=== PATIENT | female | born 1970 | race African-American/Black ===

== ENCOUNTER 2024-10-25 22:07 | Emergency (ER) | payer MEDICAID, OTHER ==
[~2024-10-25] VITALS: Ht 167.6 cm; Wt 68.6 kg
--- NOTE | 2024-10-25 22:36 | ED.PDOC ---
HPI Comments 54-year-old female with PMHx Asthma presents with a chief complaint of chest pain x 1 week. Patient states that her pain is localized to her right chest, radiates into her right arm and right shoulder, describes as aching, and reports that her elbow to her fingers feels numb. She reports pain in right shoulder and chest is worsened with movement of the right upper extremity. Patient mentions that she initially went to [place] urgent care and they told her to be seen at the nearest ER instead. Patient mentions that she already takes Oxycodone for pain management from [place]. Patient denies any injuries or trauma prior to onset of symptoms. He reports recent upper respiratory infection symptoms. Past medical history includes asthma and cholecystectomy. She denies history of hypertension, diabetes, hyperlipidemia, cardiac disease, smoking history. Chief Complaint: Chest Pain Time Seen by MD: 22:21 Reviewed Notes: Medications, Allergies Allergies: Coded Allergies: Penicillins (Verified Allergy, 11/27/12) Information Source: Patient Mode of Arrival: Ambulatory Severity: Moderate Timing: Days Duration: Since onset Prehospital treatment: None Location: Chest (R) Radiation: Shoulder (R), Arm (R) Quality: Aching Onset: At Rest Cardiac Risk Factors: None PE Risk Factors: None History of: None Vital Signs Vital Signs Date Time Temp Pulse Resp B/P (MAP) Pulse Ox O2 Delivery O2 Flow Rate FiO2 10/26/24 01:30 71 16 98 Room Air* 0 21 10/26/24 01:30 98.1 163/108 (126) 98.1 Physical Exam General: Awake, alert and oriented. No acute distress. Skin: Skin in warm, dry and intact. Appropriate color for ethnicity. HEENT: The head is normocephalic and atraumatic. Conjunctivae are clear without exudates or hemorrhage. Sclera is non-icteric. EOM are intact. No signs of nystagmus. Eyelids are normal in appearance without swelling or lesions. Oral mucosa is pink and moist Neck: The neck is supple. No JVD. Cardiac: Heart rate and rhythm are normal. No murmurs, gallops, or rubs are auscultated. Radial pulses strong and equal. Respiratory: No signs of respiratory distress. Lung sounds are clear in all lobes bilaterally without rales, rhonchi, or wheezes. Abdominal: Abdomen is soft, non-tender without distention. Bowel sounds are present and normoactive in all four quadrants. Extremities: Right shoulder, right trapezius, right chest wall tender to palpation. Neurological: The patient is awake, alert and oriented to person, place, and time with normal speech. Speech is clear. There is no facial asymmetry. Normal gait. Strength in upper and lower extremities intact. Psychiatric: Appropriate mood and affect. Good judgement and insight. Review of Systems: REVIEW OF SYSTEMS: No fever, no chills, or fatigue HEENT: Positive sore throat, positive tinnitus, no earache, no congestion, positive neck pain neck pain (chronic). Cardiac: Positive chest pain. No palpitations. Lungs: No shortness of breath, no cough. GI: No nausea, no vomiting, no diarrhea, no constipation, positive abdominal pain yesterday : No dysuria, frequency, or urgency. No hematuria. Musculoskeletal: Positive right shoulder pain, no joint swelling, no extremity edema. Skin: No rash, no itching. 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 Was a procedure done?: No CP Differential Dx Differential Diagnosis: Electrolyte Disorder, Other (Acute coronary syndrome, pulmonary embolism, pneumonia, upper respiratory infection, muscle spasm, cervical radiculopathy, limb ischemia, aortic dissection) Differential Diagnosis: CHF, HTN Essential Differential Diagnosis: Chest Wall Pain, Costochondritis, Other (Musculoskeletal pain) X-Ray, Labs, Meds, VS Vital Signs Date Time Temp Pulse Resp B/P (MAP) Pulse Ox O2 Delivery O2 Flow Rate FiO2 10/26/24 01:30 71 16 98 Room Air* 0 21 10/26/24 01:30 98.1 71 16 163/108 (126) 98 98.1 10/26/24 01:08 73 10/26/24 00:12 67 10/26/24 00:05 67 10/25/24 22:34 98.1 85 16 176/121 (139) 96 98.1 10/25/24 22:13 70 Lab Test 10/26/24 02:25 10/26/24 00:15 10/25/24 22:42 Range/Units Influenza Type A Antigen Pending Influenza Type B Antigen Pending SARS-CoV-2 Antigen (Rapid) Pending Troponin I High Sensitivity < 3 L < 3 L </=34 ng/L White Blood Count 5.4 4.4-10.8 10^3/uL Red Blood Count 4.93 4.0-5.20 10^6/uL Hemoglobin 14.2 12.2-16.2 g/dL Hematocrit 42.3 36.0-46.0 % Mean Corpuscular Volume 85.8 80.0-100.0 fL Mean Corpuscular Hemoglobin 28.8 28.0-32.0 pg Mean Corpuscular Hemoglobin Concent 33.6 32.0-36.0 g/dL Red Cell Distribution Width 13.7 11.8-14.3 % Platelet Count 267 140-450 10^3/uL Mean Platelet Volume 7.7 6.9-10.8 fL Neutrophils (%) (Auto) 37.3 37.0-80.0 % Lymphocytes (%) (Auto) 48.5 10.0-50.0 % Monocytes (%) (Auto) 7.0 0.0-12.0 % Eosinophils (%) (Auto) 6.3 0.0-7.0 % Basophils (%) (Auto) 0.9 0.0-2.0 % Neutrophils # (Auto) 2.0 1.6-8.6 10 ^3/uL Lymphocytes # (Auto) 2.6 0.4-5.4 10 ^3/uL Monocytes # (Auto) 0.4 0-1.3 10 ^3/uL Eosinophils # (Auto) 0.3 0-0.8 10 ^3/uL Basophils # (Auto) 0.1 0-0.2 10 ^3/uL Nucleated Red Blood Cells 0.1 % Sodium Level 143 136-145 mmol/L Potassium Level 3.9 3.5-5.1 mmol/L Chloride Level 104 98-107 mmol/L Carbon Dioxide Level 30 20-31 mmol/L Anion Gap 9 5-15 Blood Urea Nitrogen 8 L 9-23 mg/dL Creatinine 0.91 0.550-1.02 mg/dL Glomerular Filtration Rate Calc 75 >90 mL/min BUN/Creatinine Ratio 8.8 L 10.0-20.0 Serum Glucose 113 H 74-106 mg/dL Calcium Level 10.1 8.7-10.4 mg/dL Magnesium Level 2.1 1.6-2.6 mg/dL Total Bilirubin 0.3 0.2-1.0 mg/dL Aspartate Amino Transferase (AST) 40 13-40 U/L Alanine Aminotransferase (ALT) 55 H 7-40 U/L Alkaline Phosphatase 119 H 46-116 U/L Creatine Kinase 94 34-145 U/L Total Protein 7.1 5.7-8.2 g/dL Albumin 4.7 3.2-4.8 g/dL Current Medications Medications (Trade) Dose Ordered Sig/Huang Route Start Time Stop Time Status Last Admin Ketorolac Tromethamine (Toradol Injection) 60 mg ONCE ONCE IM 10/25/24 22:45 10/25/24 22:46 DC 10/26/24 01:40 Acetaminophen (Tylenol Tablet Or Capsule) 1,000 mg ONCE ONCE PO 10/25/24 22:45 10/25/24 22:46 DC 10/26/24 01:41 Diazepam (Valium Tablet) 5 mg ONCE ONCE PO 10/25/24 22:45 10/25/24 22:46 DC 10/26/24 01:41 PATIENT: ROISO CARTERACCT: [id number]: [id number] : 1970 LOC: ER ROOM / BED: / AGE / SEX: 54 / F ADM STATUS: REG ER SERVICE 30 ORDERING PHYSICIAN: RACIEL KAUR MD PROCEDURE(s): CXR2 - CHEST TWO VIEWS ROUTINE REASON: Right-sided chest pain ORDER NUMBER(s): [id number], ACCESSION NUMBER(s): [id number] CHEST RADIOGRAPH Indication: Right-sided chest pain Technique: Frontal and lateral view of the chest was obtained Comparison: None FINDINGS: Lines and Tubes: None Lungs: Clear Pleura: No effusion. No pneumothorax. Cardiomediastinal contours: Unremarkable Bones: Unremarkable IMPRESSION: No abnormality demonstrated. ATED BY: ALEX MAJOR MD DICTATED DATE/TIME: 10/25/247 SIGNED BY: ALEX MAJOR MD SIGNED DATE/TIME: 10/25/242256 Images Reviewed?: Images reviewed and evaluated by me (Independent interpretation of chest x-ray: No acute disease) Time of 1ST Reevaluation: 22:51 Reevaluation 1ST: Unchanged Patient Education/Counseling: Need For Follow Up Family Education/Counseling: No Family Present Departure 1 Departure Time of Disposition: 01:12 Impression: Primary Impression: Chest pain Additional Impression: Right shoulder pain Disposition: 01 HOME / SELF CARE / HOMELESS Condition: Stable Additional Instructions: ED DISCHARGE INSTRUCTIONS Instructions: Please read all instructions provided in this packet carefully. Although you have been discharged from the Emergency Department, this does not mean that you have a "clean bill of health". No definitive diagnosis for your symptoms has been made today. It is possible that you are in the process of developing a serious illness. This is why you must return to the ED without fail if any new or worsening symptoms (especially if your symptoms include chest pain, trouble breathing, abdominal pain, fever, headache, confusion, trouble seeing, or trouble walking) It is also very important that you see a primary care doctor within the next 3-5 days to follow up. If you are unable to get an appointment, return to the ED for re-evaluation. You had elevated blood pressure reading today. Untreated high blood pressure can have serious consequences. However, you need a follow-up appointment to recheck your blood pressure to determine whether or not you need treatment. Make an appointment with your primary care provider for this within the next week. CHEST PAIN EDUCATION There are many things that can cause chest pain. Some are not serious and will get better on their own in a few days. But some kinds of chest pain need more testing and treatment. Your doctor may have recommended a follow-up visit in the next few days. If you are not getting better, you may need more tests or treatment. Even though your doctor has released you, you still need to watch for any problems. The doctor carefully checked you, but sometimes problems can develop later. If you have new symptoms or if your symptoms do not get better, get medical care right away. If you have worse or different chest pain or pressure that lasts more than 5 minutes or you passed out (lost consciousness), call 911 or seek other emergency help right away. A medical visit is only one step in your treatment. Even if you feel better, you still need to do what your doctor recommends, such as going to all suggested follow-up appointments and taking medicines exactly as directed. This will help you recover and help prevent future problems. How can you care for yourself at home? Rest until you feel better. Take your medicine exactly as prescribed. Call your doctor if you think you are having a problem with your medicine. Do not drive after taking a prescription pain medicine. When should you call for help? Call 911 if: You passed out (lost consciousness). You have severe difficulty breathing. You have symptoms of a heart attack. These may include: Chest pain or pressure, or a strange feeling in your chest. Sweating. Shortness of breath. Nausea or vomiting. Pain, pressure, or a strange feeling in your back, neck, jaw, or upper belly or in one or both shoulders or arms. Lightheadedness or sudden weakness. A fast or irregular heartbeat. After you call 911, the peeler operator may tell you to chew 1 adult-strength or 2 to 4 low-dose aspirin. Wait for an ambulance. Do not try to drive yourself. Call your doctor now or seek immediate medical care if: You have any trouble breathing. You have new or different chest pain. You are dizzy or lightheaded, or you feel like you may faint. Watch closely for changes in your health, and be sure to contact your doctor if you do not get better as expected. Current as of: February 11, 2024 Author: [employer] Staff? Comments 54-year-old female with right-sided chest pain associated with right shoulder pain, worsened with right upper extremity movement. EKG negative for signs of ischemia. High sensitivity troponin negative. CXR shows no acute process. Presentation not suggestive of acute coronary syndrome, pulmonary embolism or aortic dissection. Suspect musculoskeletal pain. Patient improved at time of discharge. No hypoxia, respiratory distress or dyspnea at discharge. Blood pressure improved. Patient able to ambulate without difficulty. Patient well-appearing, nontoxic. Advised prompt follow-up with PCP, return to the ED with any new, worsening or concerning symptoms. Discussed with Dr. Ramos from [place]. He will arrange for outpatient follow up with patient's PCP. (#[id number]) @ 02:24 - I reviewed the following notes from the pt's past medical encounters: Encounter 11/27/2012 for chest pain The following tests were ordered, and results were reviewed by me: (See diagnostic results section) The following test were independently interpreted by me: EKG, chest x-ray Additional information was gathered from interviewing the following independent historians: N/A I reviewed and agreed with the following test results read by other providers: Chest x-ray I discussed treatments and results with medical personnel and patient Decision regarding hospitalization or escalation of hospital level of care: Risks and benefits of admission for further treatment of patient's condition was considered however due to patient's stable condition patient will be discharged to follow up closely or return to care for worsening of condition or inability to follow up. Critical Care Note Critical Care Time?: No Stability Stability form required: No Heart Score Heart Score: Heart Score Response (Comments) Value History Slightly Suspicious 0 EKG Normal 0 Age 45-64 1 Risk Factors No known risk factors 0 Troponin Normal limit 0 Total 1 I personally scribed for RACIEL KAUR MD (Book [employer]back) on 10/25/24 at 22:36. Electronically submitted by Maik Lopez ([email or web address]). I personally scribed for RACIEL KAUR MD (Book Buyback) on 10/25/24 at 23:19. Electronically submitted by Maik Lopez ([email or web address]). I personally scribed for RACIEL KAUR MD (Book Buyback) on 10/26/24 at 00:12. Electronically submitted by Maik Lopez ([email or web address]). RACIEL KAUR MD Oct 25, 2024 22:36
[2024-10-25 22:56] LABS: Basophils # (auto) 0.1 10 ^3/uL (0-0.2); Basophils % (auto) 0.9 % (0.0-2.0); Eosinophils # (auto) 0.3 10 ^3/uL (0-0.8); Eosinophils % (auto) 6.3 % (0.0-7.0); Hematocrit 42.3 % (36.0-46.0); Hemoglobin 14.2 g/dL (12.2-16.2); Lymphocytes # (auto) 2.6 10 ^3/uL (0.4-5.4); Lymphocytes % (auto) 48.5 % (10.0-50.0); Mean Corpuscular Hemoglobin 28.8 pg (28.0-32.0); Mean Corpuscular Hgb Conc. 33.6 g/dL (32.0-36.0); Mean Corpuscular Volume 85.8 fL (80.0-100.0); Monocytes # (auto) 0.4 10 ^3/uL (0-1.3); Neutrophils % (auto) 37.3 % (37.0-80.0); Nucleated Red Blood Cells % 0.1 %; Platelet Count (auto) 267 10^3/uL (140-450); Red Blood Cells 4.93 10^6/uL (4.0-5.20); Red Cell Distribution Width 13.7 % (11.8-14.3); White Blood Cell 5.4 10^3/uL (4.4-10.8)
--- NOTE | 2024-10-25 22:59 | DVH ---
CHEST RADIOGRAPH Indication: Right-sided chest pain Technique: Frontal and lateral view of the chest was obtained Comparison: None FINDINGS: Lines and Tubes: None Lungs: Clear Pleura: No effusion. No pneumothorax. Cardiomediastinal contours: Unremarkable Bones: Unremarkable IMPRESSION: No abnormality demonstrated.
[2024-10-25 23:09] LABS: Albumin 4.7 g/dL (3.2-4.8); Anion Gap 9 (5-15); BUN/Creatinine Ratio 8.8 (10.0-20.0); Calcium 10.1 mg/dL (8.7-10.4); Carbon Dioxide 30 mmol/L (20-31); Chloride 104 mmol/L (98-107); Magnesium 2.1 mg/dL (1.6-2.6); Potassium 3.9 mmol/L (3.5-5.1); Sodium 143 mmol/L (136-145); Total Protein 7.1 g/dL (5.7-8.2)
[2024-10-25 23:10] LABS: Bilirubin, Total 0.3 mg/dL (0.2-1.0); Creatine Kinase IFCC 94 U/L (34-145)
[2024-10-25 23:15] LABS: Blood Urea Nitrogen 8 mg/dL (9-23); Glucose 113 mg/dL (74-106)
[2024-10-25 23:16] LABS: Alanine Aminotransferase 55 U/L (7-40); Alkaline Phosphatase 119 U/L (46-116); Aspartate Aminotransferase 40 U/L (13-40)
--- NOTE | 2024-10-25 23:57 | ECG ---
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
[2024-10-26 01:30] VITALS: PULSE 71; RESP 16; TEMP 98.1; O2SAT 98
[2024-10-26] MEDS: KETOROLAC TROMETH 30 MG/ML 1ML VIAL IM ONE (01:40)
[2024-10-26] MEDS: diazePAM 5 MG TAB PO ONE (01:41)
[2024-10-26] MEDS: ACETAMINOPHEN 500 MG TAB or CAP PO ONE (01:41)
[2024-10-26 02:40] VITALS: BP 169/89
[2024-10-26 03:44] LABS: COVID19 ANTIGEN SOFIA FIA NEGATIVE (NEGATIVE); Rapid Influenza A Negative (Negative); Rapid Influenza B Negative (Negative)
--- NOTE | 2024-10-28 11:26 | ECG ---
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
--- NOTE | 2024-10-28 11:26 | ECG ---
[facility] Test Date: 2024-10-26 Test Time: 01:08:32 Pat Name: ROSIO CARTER Department: ED Room: Gender: F Sweater Operator: MANOLO : 1970 Requested By: RACIEL KAUR Order Number: [id number] Reading MD: Measurements Intervals [place] Rate: 73 P: 72 NE: 174 QRS: 76 QRSD: 88 T: 3 QT: 436 QTc: 481 Interpretive Statements Sinus rhythm Low voltage, precordial leads Borderline T abnormalities, anterior leads Please click the below link to view image of tracing.
== END 2024-10-26 02:45 | disposition home or self-care (01) ==
LOC: ER 22:10
DX: R07.89 Other chest pain (principal); M25.511 Pain in right shoulder; J45.909 Unspecified asthma, uncomplicated; Z90.49 Acquired absence of other specified parts of digestive tract; Z90.710 Acquired absence of both cervix and uterus; Z88.0 Allergy status to penicillin; Z20.822 Contact with and (suspected) exposure to COVID-19
CPT/HCPCS: 36415; 71046; 80053; 82550; 83735; 84484; 85025; 87426; 87804; 93005; 96372; 99285; J1885